=== PATIENT | female | born 1945 | race Caucasian/White ===

== ENCOUNTER 2023-10-03 22:01 | Emergency (ER) | payer MEDICARE, OTHER ==
[~2023-10-03] VITALS: Ht 180.3 cm; Wt 55.0 kg
[2023-10-03 22:15] VITALS: O2SAT 98
[2023-10-03] MEDS ORDERED: DEXTROSE 50% WATER 50ML SYRINGE IV ONE (22:45)
[2023-10-03 22:57] LABS: BASOPHILS % 0.2 % (0.0-2.0); EOSINOPHILS % 0.6 % (0.0-5.0); HEMATOCRIT. 38.1 % (36.0-48.0); HEMOGLOBIN. 12.5 g/dL (12.0-16.0); MEAN CORPUSCULAR HEMOGLOBIN 29.4 pg (28.0-32.0); MEAN CORPUSCULAR HGB CONC 32.8 g/dL (31.0-37.0); MEAN CORPUSCULAR VOLUME 89.4 fL (81.0-99.0); MEAN PLATELET VOLUME 7.4 fl (7.4-10.4); MONOCYTES % 5.3 % (2.0-8.0); NEUTROPHILS % 81.9 % (40.0-76.0); PLATELET 278 x1000/uL (130-400); RED BLOOD CELL COUNT 4.27 mill/uL (4.2-5.4); RED CELL DISTRIBUTION WIDTH 13.4 % (11.6-14.6); WHITE BLOOD COUNT 11.2 x1000/uL (4.5-11.0)
[2023-10-04 00:23] LABS: *AMPHETAMINES SCREEN URINE Neg (NEGATIVE); *BARBITURATES SCREEN URINE Neg (NEGATIVE); *BENZODIAZEPINES SCREEN URINE Neg (NEGATIVE); *COCAINE SCREEN URINE Neg (NEGATIVE); CANNABINOID URINE SCREEN Neg (NEGATIVE); ECSTASY MDMA SCREEN URINE Neg (NEGATIVE); METHADONE URINE SCREEN Neg (NEGATIVE); OPIATES URINE SCREEN Neg (NEGATIVE); PHENCYCLIDINE URINE SCREEN Neg (NEGATIVE)
[2023-10-04 00:48] LABS: LACTIC ACID 3.7 mmol/L (0.4-2.0)
[2023-10-04 01:55] VITALS: BP 127/54; PULSE 69; RESP 15; TEMP 98.6
[2023-10-04 02:00] LABS: POTASSIUM 4.2 mEq/L (3.5-5.1); SODIUM 140 mEq/L (136-145)
[2023-10-04 02:01] LABS: CARBON DIOXIDE 25 mEq/L (21-32); CHLORIDE 105 mEq/L (98-107); CREATININE 1.3 mg/dL (0.6-1.0); GLUCOSE 35 mg/dL (70-105); UREA NITROGEN BLOOD 28 mg/dL (9-23)
[2023-10-04 02:02] LABS: ALBUMIN 4.3 g/dL (3.2-4.8); CALCIUM 10.5 mg/dL (8.7-10.4); PROTEIN TOTAL 7.1 g/dL (6.0-8.3)
[2023-10-04 02:03] LABS: BILIRUBIN TOTAL 0.5 mg/dL (0.1-1.0)
[2023-10-04 02:04] LABS: ALANINE AMINOTRANSFERASE 21 IU/L (10-49); ASPARTATE AMINOTRANSFERASE 26 IU/L (<34); TROPONIN I HIGH SENSITIVITY 5 ng/L (3.0-34)
[2023-10-04 02:05] LABS: ETHANOL BLOOD < 10 mg/dL (<10)
== END 2023-10-04 02:18 | disposition left against medical advice (07) ==
LOC: ER 22:01
DX: E16.2 Hypoglycemia, unspecified (principal); E87.20 Acidosis, unspecified; F03.90 Unspecified dementia, unspecified severity, without behavioral disturbance, psychotic disturbance, mood disturbance, and anxiety; E11.9 Type 2 diabetes mellitus without complications
CPT/HCPCS: 36415; 71045; 80053; 80305; 80320; 82962; 83605; 83880; 84484; 85025; 93005; 96374; 99285; G0480